=== PATIENT | male | born 1975 | race Two or more races ===

== ENCOUNTER 2016-11-28 19:45 | Inpatient (IN) | payer BC, OTHER ==
[~2016-11-28] VITALS: Ht 185.4 cm; Wt 93.9 kg
--- NOTE | 2016-11-28 19:45 | NUR ---
TO BED 4 BIB PARAMEDICS C/O NEAR SYNCOPE. RECEIVED PT AAOX4 NO ACUTE DISTRESS NOTED, RESP EVEN AND UNLABORED. PT C/O WEAK AND DIZZY. PUPILS PERRL, PT ABLE TO MOVE ALL EXTREMITIES WELL WITH BILATERAL EQUAL SKEIN YARN DYER. PLACE PT ON CARDIAC MONITORING, CONTINUOUS POX. ER MD AT BEDSIDE TO EVAL PT WITH ORDERS RECEIVED. STARTED SL 18G TO L AC, BLOOD DRAWN AND SENT TO LAB. WILL CARRY OUT ORDERS.
[2016-11-28 19:59] LABS: BASOPHILS % (AUTO) 0.4 % (0.0-2.0); EOSINOPHILS # (AUTO) 0.3 /CMM (0.0-0.7); EOSINOPHILS % (AUTO) 4.1 % (0.0-6.0); HEMATOCRIT 42 % (39-51); HEMOGLOBIN 14.2 g/dL (13.5-17.5); LYMPHOCYTES # (AUTO) 1.2 /CMM (0.8-4.8); LYMPHOCYTES % (AUTO) 19.2 % (20.0-44.0); MEAN CORPUSCULAR HEMOGLOBIN 33 PG (26.0-33.0); MEAN CORPUSCULAR HGB CONC 34 g/dl (31.0-36.0); MEAN CORPUSCULAR VOLUME 97 fL (80-96); MONOCYTES # (AUTO) 0.2 /CMM (0.1-1.30); MONOCYTES % (AUTO) 3.9 % (2.0-12.0); NEUTROPHILS # (AUTO) 4.5 /CMM (1.8-8.9); NEUTROPHILS % (AUTO) 72.4 % (43.0-81.0); PLATELET COUNT (AUTO) 219 /CMM (150-450); RDW COEFFICIENT OF VARIATION 11.3 (11.5-15.0); WHITE BLOOD COUNT (AUTO) 6.2 K/uL (4.3-11.0)
[2016-11-28] MEDS ORDERED: IV NS 0.9% 1,000 ML BAG IV ONE (20:00)
[2016-11-28 20:10] LABS: CALCIUM, SERUM 8.7 mg/dL (8.5-10.1); CARBON DIOXIDE 31 mmol/L (21-32); CHLORIDE 105 mmol/L (98-107); CREATININE 1.2 mg/dL (0.6-1.3); GLUCOSE 108 mg/dL (74-106); POTASSIUM 3.9 mmol/L (3.5-5.1); SODIUM SERUM 139 mmol/L (136-145); UREA NITROGEN, BLOOD 15 mg/dL (7-18)
[2016-11-28 20:13] LABS: INR 1.05 (0.87-1.13); PROTHROMBIN TIME 10.9 SECS (9.5-12.7)
[2016-11-28 20:16] LABS: ALANINE AMINOTRANSFERASE 30 U/L (12-78); ALBUMIN 3.6 g/dL (3.4-5.0); ALKALINE PHOSPHATASE 74 U/L (46-116); ASPARTATE AMINOTRANSFERASE 34 U/L (15-37); BILIRUBIN,DIRECT 0.1 mg/dL (0.0-0.2); BILIRUBIN,TOTAL 0.3 mg/dL (0.2-1.0); TOTAL PROTEIN, SERUM 6.6 g/dL (6.4-8.2)
[2016-11-28 20:18] LABS: TROPONIN I < 0.017 ng/mL (0.00-0.056)
[2016-11-28 20:51] LABS: APPEARANCE,URINE Clear (CLEAR); BILIRUBIN,URINE Negative (NEGATIVE); BLOOD, URINE Negative Ery/uL (NEGATIVE); COLOR,URINE Yellow (YELLOW); KETONES,URINE Negative (NEGATIVE); LEUKOCYTE ESTERASE ,URINE Negative (NEGATIVE); NITRITE, URINE Negative (NEGATIVE); PH,URINE 7.5 (5.0-8.0); PROTEIN,URINE Negative (NEGATIVE); UGLUCOSE Negative (NEGATIVE); UROBILINOGEN,URINE 0.2 EU/dL (0.2)
--- NOTE | 2016-11-28 21:01 | NUR ---
ANDI KRAMER AT BEDSIDE TO RE-EVAL PT.
--- NOTE | 2016-11-28 21:03 | NUR ---
PT TRANSPORTED TO RADIOLOGY FOR CT HEAD.
--- NOTE | 2016-11-28 21:04 | NUR ---
PAGED DR NUGENT FOR PANEL ADMISSION
--- NOTE | 2016-11-28 21:08 | NUR ---
DR NUGENT CALLED BACK, TRANSFERRED CALL TO DR GUZMAN
--- NOTE | 2016-11-28 21:10 | NUR ---
CALLED NURSING ORTHOTICS ASSISTANT FOR M/S BED
--- NOTE | 2016-11-28 21:22 | NUR ---
PT BACK FROM RADIOLOGY. PENDING CT HEAD RESULT.
[2016-11-28] MEDS ORDERED: Folic acid 1 MG in IV D5W 50 ML IV SCH ×2 (21:30→22:00)
[2016-11-28] MEDS ORDERED: MVI-12 10ML IV ONE ×2 (21:30→21:50)
[2016-11-28] MEDS ORDERED: Thiamine 100 MG in IV D5W 50 ML IV SCH ×2 (21:30→22:00)
[2016-11-28] MEDS ORDERED: IV D5/0.45 NACL 1,000 ML IV PRN (21:34)
--- NOTE | 2016-11-28 21:43 | NUR ---
REPORT CALLED TO M/S JENNIFER GARCÍA. WILL TRANSPORT PT TO ROOM 320-2.
[2016-11-28] MEDS ORDERED: Folic acid 1 MG/0.2 ML VIAL ONE (21:49)
[2016-11-28] MEDS ORDERED: Thiamine 100 MG/ML VIAL ONE (21:49)
[2016-11-28] MEDS ORDERED: HYDROCODONE/APAP 5/325MG 1 EACH TABLET PO PRN (22:00)
[2016-11-28] MEDS ORDERED: ZOLPIDEM TARTRATE 5 MG TABLET PO PRN (22:00)
[2016-11-28] MEDS ORDERED: MAG HYDROX/AL HYDROX/SIMETH 30 ML UDC PO PRN (22:00)
[2016-11-28] MEDS ORDERED: ONDANSETRON HCL/PF 4 MG/2 ML VIAL IVP PRN (22:00)
[2016-11-28] MEDS ORDERED: MAGNESIUM HYDROXIDE 30 ML UDC PO PRN (22:00)
[2016-11-28] MEDS ORDERED: IV D5/ 0.9% NACL 1,000 ML IV PRN (22:00)
[2016-11-28] MEDS ORDERED: ACETAMINOPHEN 325 MG TABLET PO PRN (22:00)
[2016-11-28] MEDS ORDERED: Z GUARD REMEDY 2 OZ OINT TP PRN (22:00)
[2016-11-28 22:30] VITALS: BP 119/69
--- NOTE | 2016-11-28 22:30 | NUR ---
MS RN NOTE RECEIVED PATIENT AWAKE, ALERT AND ORIENTED VIA GURNEY FROM ER. PATIENT STATES HE IS VERY WEAK. UNABLE TO AMBULATE AT THIS TIME. ASSISTED PATIENT FROM GURNEY TO BED. PATIENT DENIES ANY PAIN OR DISCOMFORT AT THIS TIME. NO RESPIRATORY DISTRESS OR SOB NOTED. IV SITE TO LAC INTACT, WITH FLUIDS RUNNING ORDERED. PATIENT IS FROM [place], BUT IS STAYING AT [facility] FOR HIS [facility]. PATIENT STATED HE FELT EXTREMELY DIZZY, SO STAFF BROUGHT HIM TO HOSPITAL. PATIENT DENIES ANY DIZZINESS AT THIS TIME. ORIENTED PATIENT TO ROOM AND TO UNIT. MD AWARE THAT PATIENT IS HERE. AWAITING ORDERS. SKIN CHECKED. NO BREAKDOWN OR BRUISING NOTED. BED LOCKED AND IN LOWEST POSITION. SIDE RAILS UP, CALL LIGHT WITHIN REACH. WILL CONTINUE TO MONITOR.
--- NOTE | 2016-11-28 22:50 | NUR ---
MS RN NOTE THIAMINE AND FOLIC ACID GIVEN IN ER.
[2016-11-29] MEDS ORDERED: ALBUTEROL FS 2.5 MG/0.5 ML VIAL.NEB NEB PRN (00:30)
[2016-11-29] MEDS ORDERED: LEVOFLOXACIN 750 MG /D5W 150ML 750 MG in PREMIX 1 EA IV SCH (00:30)
[2016-11-29] MEDS ORDERED: methylPREDNISolone SOD SUCC 40 MG/ML VIAL ONE (01:45)
[2016-11-29] MEDS ORDERED: LEVOFLOXACIN 500 MG /D5W 100ML 500 MG in PREMIX 1 EA IV SCH (03:00)
[2016-11-29] MEDS ORDERED: LEVOFLOXACIN 500 MG /D5W 100ML 100 ML IV ONE (03:02)
[2016-11-29] MEDS: methylPREDNISolone SOD SUCC 40 MG/ML VIAL IV SCH ×3 (03:13→12:25)
[2016-11-29] MEDS ORDERED: IBUP-1481 PO (03:32)
[2016-11-29] MEDS ORDERED: FLUO40CA49 PO (03:32)
[2016-11-29] MEDS ORDERED: TRAZ-147 PO (03:32)
[2016-11-29 07:19] LABS: BASOPHILS % (AUTO) 0.7 % (0.0-2.0); EOSINOPHILS # (AUTO) 0.3 /CMM (0.0-0.7); HEMATOCRIT 40 % (39-51); LYMPHOCYTES # (AUTO) 1.1 /CMM (0.8-4.8); LYMPHOCYTES % (AUTO) 25.8 % (20.0-44.0); MEAN CORPUSCULAR HEMOGLOBIN 34 PG (26.0-33.0); MEAN CORPUSCULAR HGB CONC 35 g/dl (31.0-36.0); MEAN CORPUSCULAR VOLUME 99 fL (80-96); MONOCYTES # (AUTO) 0.3 /CMM (0.1-1.30); NEUTROPHILS # (AUTO) 2.6 /CMM (1.8-8.9); NEUTROPHILS % (AUTO) 61.5 % (43.0-81.0); PLATELET COUNT (AUTO) 178 /CMM (150-450); RDW COEFFICIENT OF VARIATION 12.4 (11.5-15.0); RED BLOOD CELL COUNT(AUTO) 4.09 MIL/uL (4.5-6.0); WHITE BLOOD COUNT (AUTO) 4.2 K/uL (4.3-11.0)
[2016-11-29 07:25] LABS: INR 1.01 (0.87-1.13); PROTHROMBIN TIME 10.8 SECS (9.5-12.7)
[2016-11-29] MEDS ORDERED: PANTOPRAZOLE 40 MG TABLET.DR PO SCH (07:30)
[2016-11-29 07:31] LABS: ALBUMIN 3.1 g/dL (3.4-5.0); BILIRUBIN,DIRECT 0.1 mg/dL (0.0-0.2); BILIRUBIN,TOTAL 0.3 mg/dL (0.2-1.0); CALCIUM, SERUM 7.8 mg/dL (8.5-10.1); CREATININE 1.1 mg/dL (0.6-1.3); MAGNESIUM 1.7 mg/dL (1.8-2.4); PHOSPHORUS 3.8 mg/dL (2.5-4.9); POTASSIUM 3.6 mmol/L (3.5-5.1); TOTAL PROTEIN, SERUM 5.9 g/dL (6.4-8.2)
[2016-11-29 07:42] LABS: THYROID STIMULATING HORMONE 1.314 uIU/mL (0.358-3.74)
[2016-11-29 08:00] VITALS: BP 120/68
[2016-11-29] MEDS ORDERED: MULTIPLE VIT (LYCOPENE/FA/MV,CA,IRON,MIN/LUT)1 TAB PO SCH (09:00)
--- NOTE | 2016-11-29 10:30 | NUR ---
RN NOTE RECEIVED PT. PT IN BED AND SLEEPING. NO S/S OF DISTRESS OR PAIN. PT IS A&OX4. IV ACCESS LOCATED ON LAC, 18G, RUNNING D5 1/2 NS AT 75 ML/HR. SAFETY MEASURES IN PLACE. CALL LIGHT WITHIN REACH. WILL CONTINUE TO MONITOR.
[2016-11-29] MEDS: Magnesium 1GM/D5W 100ML PREMIX 100 ML IV SCH ×2 (12:25→13:55)
[2016-11-29] MEDS ORDERED: GABA-534 PO (16:32)
[2016-11-29 16:54] VITALS: BP 126/67
--- NOTE | 2016-11-29 17:05 | NUR ---
DISCHARGE NOTE PT DISCHARGED. DISCHARGE TEACHING PERFORMED, PATIENT EXPRESSED UNDERSTANDING OF TEACHING. PT ADVISED TO FOLLOW UP WITH PRIMARY PHYSICIAN IN 7 DAYS. IV ACCESS REMOVED. PT GIVEN PRESCRIPTION FOR GABAPENTIN. PT LEFT WITH ESCORT FROM [facility].
[2016-11-29] MEDS ORDERED: Folic acid 1 MG in IV D5W 50 ML IV SCH (21:00)
[2016-11-30] MEDS ORDERED: LEVOFLOXACIN 500 MG /D5W 100ML 500 MG in PREMIX 1 EA IV SCH (05:00)
== END 2016-11-29 16:30 | DRG 312 ==
LOC: ER 19:46 → MED 21:30
PROVIDERS: ADMIT Internal Medicine; ATTEND Internal Medicine
DX: R55 Syncope and collapse (principal); J44.0 Chronic obstructive pulmonary disease with (acute) lower respiratory infection; J44.1 Chronic obstructive pulmonary disease with (acute) exacerbation; J20.9 Acute bronchitis, unspecified; F10.20 Alcohol dependence, uncomplicated; F17.210 Nicotine dependence, cigarettes, uncomplicated; T43.215A Adverse effect of selective serotonin and norepinephrine reuptake inhibitors, initial encounter; Y92.009 Unspecified place in unspecified non-institutional (private) residence as the place of occurrence of the external cause; T43.211A Poisoning by selective serotonin and norepinephrine reuptake inhibitors, accidental (unintentional), initial encounter; R27.0 Ataxia, unspecified
CPT/HCPCS: 36415; 70450-TC; 71010-TC; 71020-TC; 80048-TC; 80053-TC; 80061-TC; 80076-TC; 81000-TC; 82553-TC; 82746; 83540-TC; 83605-TC; 83735-TC; 84100-TC; 84443-TC; 84484-TC; 85025-TC; 85730-TC; 87040-TC; 93307-TC; 97001-TC; A4216; A4606; J1956; J2920; J3411; J3475; J3490; J7030; J7042; J7060; Z7610